=== PATIENT | male | born 2000 | race African-American/Black ===

== ENCOUNTER 2018-04-16 21:30 | Emergency (ER) | payer BC ==
[2018-04-16] MEDS ORDERED: MORPHINE 10 MG/ML VIAL IVP STA (21:45)
[2018-04-16] MEDS ORDERED: SODIUM CHLORIDE 0.9% 1,000 ML IV ONE (21:45)
--- NOTE | 2018-04-16 21:53 | ED Physician Documentation ---
PD HPI ABD PAIN - Stated complaint Stated Complaint: ABD PX - Chief complaint Chief Complaint: Abd Pain - History obtained from History obtained from: Patient, Family - History of Present Illness Timing - onset: Today Timing - details: Gradual onset, Still present Quality: Cramping, Aching Location: All over / everywhere, RLQ Worsened by: Position, Palpation Associated symptoms: Nausea, Constipation. No: Fever Similar symptoms before: Work up / diagnostics, Treatment Recently seen: Surgery - Additional information Additional information: Patient is a 18 year old male status post appendectomy three days prior who is presenting to the emergency department for abdominal pain. According to mother and patient, patient had a complicated surgery after his appendix had ruptured a few months before. Patient states that today he developed worsening abdominal pain, and dysuria. Patient states that his last bowel movement was yesterday. Review of Systems Ten Systems: 10 systems reviewed and negative Constitutional: reports: Chills. denies: Fever GI: reports: Abdominal Pain, Constipation. denies: Nausea, Vomiting : reports: Dysuria PD PAST MEDICAL HISTORY - Past Medical History Past Medical History: Yes - Past Surgical History Past Surgical History: Yes General: Appendectomy - Present Medications Home Medications: Ambulatory Orders Medication Instructions Recorded Confirmed oxyCODONE/ACET 5/325 [Percocet 5 1 tab PO Q6H PRN 04/16/18 04/16/18 mg/325 mg] - Allergies Allergies/Adverse Reactions: Allergies Allergy/AdvReac Type Severity Reaction Status Date / Time No Known Drug Allergies Allergy Verified 04/16/18 21:37 - Social History Does the pt smoke?: No Smoking Status: Never smoker Does the pt drink ETOH?: No Does the pt have substance abuse?: No - Immunizations Immunizations are current?: Yes - POLST Patient has POLST: No PD ED PE NORMAL - Vitals Vital signs reviewed: Yes - General General: Alert and oriented X 3, No acute distress, Well developed/nourished - HEENT HEENT: Atraumatic, PERRL - Neck Neck: Supple, no meningeal sign - Cardiac Cardiac: RRR - Respiratory Respiratory: No respiratory distress, Clear bilaterally - Derm Derm: Normal color - Extremities Extremities: No deformity - Neuro Neuro: Alert and oriented X 3 Eye Opening: Spontaneous PD ED PE EXPANDED - Abdomen Abdomen: Tender to palpation, Generalized/diffuse (diffuse tenderness to palpation, mild ecchymosis around incision sites ), Surgical scars Results - Vitals Vitals: Vital Signs - 24 hr 04/16/18 04/17/18 21:32 00:06 Temperature 37.5 C Heart Rate 92 76 Respiratory 16 16 Rate Blood Pressure 130/73 120/76 O2 Saturation 100 98 Oxygen O2 Source Room air - Labs Labs: Laboratory Tests 04/16/18 04/16/18 04/16/18 22:00 22:00 22:00 WBC 9.5 RBC 4.10 L Hgb 12.1 L Hct 35.8 L MCV 87.2 MCH 29.4 MCHC 33.7 RDW 13.5 Plt Count 253 MPV 8.8 Neut # 6.2 Lymph # 1.5 [place] # 1.2 H Eos # 0.5 Baso # 0.2 H Absolute Nucleated RBC 0.00 Nucleated RBC % 0.0 Sodium 136 Potassium 3.9 Chloride 98 L Carbon Dioxide 29 Anion Gap 9.0 BUN 14 Creatinine 1.0 Estimated GFR (MDRD) 95 Glucose 100 Lactic Acid 1.0 Calcium 9.5 Total Bilirubin 1.4 H AST 45 H ALT 106 H Alkaline Phosphatase 63 Total Protein 8.1 Albumin 4.2 Globulin 3.9 Albumin/Globulin Ratio 1.1 Lipase 19 L Urine Color Urine Clarity Urine pH Ur Specific [place] Urine Protein Urine Glucose (UA) Urine Ketones Urine Occult Blood Urine Nitrite Urine Bilirubin Urine Urobilinogen Ur Leukocyte Esterase Ur Microscopic Review Urine Culture Comments 04/16/18 23:01 WBC RBC Hgb Hct MCV MCH MCHC RDW Plt Count MPV Neut # Lymph # [place] # Eos # Baso # Absolute Nucleated RBC Nucleated RBC % Sodium Potassium Chloride Carbon Dioxide Anion Gap BUN Creatinine Estimated GFR (MDRD) Glucose Lactic Acid Calcium Total Bilirubin AST ALT Alkaline Phosphatase Total Protein Albumin Globulin Albumin/Globulin Ratio Lipase Urine Color YELLOW Urine Clarity CLEAR Urine pH 6.5 Ur Specific [place] 1.010 Urine Protein NEGATIVE Urine Glucose (UA) NEGATIVE Urine Ketones NEGATIVE Urine Occult Blood NEGATIVE Urine Nitrite NEGATIVE Urine Bilirubin NEGATIVE Urine Urobilinogen 0.2 (NORMAL) Ur Leukocyte Esterase NEGATIVE Ur Microscopic Review NOT INDICATED Urine Culture Comments NOT INDICATED - Rads (name of study) ct abd pelvis Radiology: Final report received, Discussed with rads (multiple hematomas), See rad report PD MEDICAL DECISION MAKING - ED course Complexity details: reviewed old records, reviewed results, re-evaluated patient , considered differential, d/w patient, d/w family, d/w retail client solutions consultant ED course: Patient was seen and examined at bedside. IV access was gained and labs were drawn. patient was treated with IV fluids but he stated he did not want pain medication. Imaging was ordered. When patient returned from imaging the results were discussed with radiologist who stated that there were two hematomas in the abdomen. Case was then discussed with electrician substation surgeon who stated if the patient was well appearing, a febrile and no white count he could follow up with his surgeon. Patient and family were made aware of the findings. They were comfortable with the discharge and follow up plans. patient was stable for discharge with outpatient follow up. Departure - Departure Disposition: Home, Self Care Clinical Impression: GI complications of surgery Condition: Good Instructions: Abdominal Pain Follow-Up: primary,care provider [Other] - Within 3 Days Comments: Your CT today showed hematomas but no signs of infection. It is important that you follow up with your surgeon tomorrow or wednesday. You can take motrin (600mg ) and tylenol (1000 mg).for pain. You should return to the emergency department for fevers, chills, new, worsening or unocntrollable symptoms. Discharge Date/Time: 04/17/18 00:06
[2018-04-16] MEDS: ONDANSETRON 4 MG/2 ML VIAL IVP STA ×2 (22:04→22:13)
[2018-04-16 22:07] LABS: BASOPHILS # (AUTO) 0.2 10^3/uL (0.0-0.1); BASOPHILS % (AUTO) 1.7 %; EOSINOPHILS # (AUTO) 0.5 10^3/uL (0.0-0.7); EOSINOPHILS % (AUTO) 5.1 %; HGB - HEMOGLOBIN 12.1 g/dL (14.0-18.0); LYMPHOCYTES # (AUTO) 1.5 10^3/uL (1.5-3.5); LYMPHOCYTES % (AUTO) 15.4 %; MEAN CORPUSCULAR HEMOGLOBIN 29.4 pg (27.0-31.0); MEAN CORPUSCULAR HGB CONC 33.7 g/dL (32.0-36.0); MEAN CORPUSCULAR VOLUME 87.2 fL (80.0-94.0); MEAN PLATELET VOLUME 8.8 fL (7.4-11.4); MONOCYTES # (AUTO) 1.2 10^3/uL (0.0-1.0); MONOCYTES % (AUTO) 12.8 %; NEUTROPHILS # (AUTO) 6.2 10^3/uL (1.5-6.6); PLT - PLATELET COUNT 253 10^3/uL (130-450); RED CELL DISTRIBUTION WIDTH 13.5 % (12.0-15.0); WHITE BLOOD COUNT 9.5 x10^3/uL (4.8-10.8)
[2018-04-16 22:21] LABS: ALBUMIN 4.2 g/dL (3.2-5.5); ALBUMIN/GLOBULIN RATIO 1.1 (1.0-2.2); BILIRUBIN,TOTAL 1.4 mg/dL (0.2-1.0); CALCIUM 9.5 mg/dL (8.5-10.3); TOTAL PROTEIN 8.1 g/dL (6.7-8.2)
[2018-04-16] MEDS ORDERED: IOPAMIDOL-300 100 ML VIAL ONE (22:28)
[2018-04-16] MEDS ORDERED: IOPAMIDOL-300 100 ML VIAL IVP ONE (22:57)
--- NOTE | 2018-04-16 23:18 | CT Report ---
EXAM: CT ABDOMEN AND PELVIS EXAM DATE: 04/16/2018 10:56 PM. CLINICAL HISTORY: Abdominal pain COMPARISONS: None. TECHNIQUE: Routine helical CT imaging was performed through the abdomen and pelvis. IV contrast: 100 ML ISOVUE 300. Enteric contrast: No. Reconstructions: Coronal and sagittal. In accordance with CT protocol optimization, one or more of the following dose reduction techniques w ere utilized for this exam: automated exposure control, adjustment of mA and/or KV based on patient s ize, or use of iterative reconstructive technique. FINDINGS: Lung Bases: Unremarkable. Liver: Normal. No masses. Gallbladder/Bile Ducts: Unremarkable. Spleen: Normal. Pancreas: Normal. Adrenal Glands: Normal. Kidneys: There are areas of ill-defined cortical hypodensity within the kidneys. No significant perin ephric stranding. No hydronephrosis. Peritoneal Cavity/Bowel: There is an area of hyperdensity measuring approximately 6 x 8 cm within the lower anterior abdomen (image 66 series 3). There is a second area of focal hyperdensity measuring a pproximate 6 x 7 cm within the pelvis (image 77). These are consistent with areas of hematoma. There is a small amount of free hemoperitoneum within the lower abdomen and pelvis. The appendix is surgica lly absent. No intraperitoneal free air. Stomach, small bowel, and colon demonstrate no acute abnorma lities. Pelvic Organs: The urinary bladder demonstrates no significant abnormalities. Vasculature: No aneurysms or other significant abnormality. Bones: No significant abnormality. Other: None. IMPRESSION: 1. There are several areas of focal hyperdensity within the lower abdomen and pelvis. These are suspi cious for areas of focal postoperative hematoma. There is an anterior lower abdomen region measuring 8 x 6 cm, and a posterior pelvic region measuring 6 x 7 cm. There is a small amount of free fluid in the low abdomen and pelvis as well. 2. No evidence of bowel obstruction. No abnormal stool burden. 3. There are areas of ill-defined cortical hypodensity within the kidneys. This could be seen with py elonephritis. No evidence of significant perinephric stranding or hydronephrosis. No evidence of foca l renal abscess. [facility] The above findings were discussed with Haile Cain by Dr. Cristofer Rodriguez at 23:17 hrs on 04/16. Referring Provider Line: [phone] SITE ID: [id number]
[2018-04-16 23:25] LABS: BILIRUBIN,URINE NEGATIVE (NEGATIVE); GLUCOSE, URINE (UA) NEGATIVE (NEGATIVE); KETONES,URINE (UA) NEGATIVE (NEGATIVE); LEUKOCYTE ESTERASE, URINE NEGATIVE (NEGATIVE); NITRITE,URINE NEGATIVE (NEGATIVE); OCCULT BLOOD,URINE NEGATIVE (NEGATIVE); PH,URINE 6.5 PH (5.0-7.5); PROTEIN,URINE NEGATIVE (NEGATIVE); UROBILINOGEN,URINE 0.2 (NORMAL) E.U./dL (NORMAL)
[2018-04-16 23:30] LABS: CLARITY,URINE CLEAR (CLEAR)
[2018-04-17 00:07] VITALS: BP 120/76
== END 2018-04-17 00:06 | disposition home or self-care (01) ==
LOC: ED 21:30
DX: K91.89 Other postprocedural complications and disorders of digestive system (principal)
CPT/HCPCS: 36415; 74177; 80053; 81003; 83605; 83690; 85025; 96361; 96374; 99283; 99284; Q9967; 81001; 87086